=== PATIENT | female | born 1985 | race Caucasian/White ===

== ENCOUNTER 2016-07-26 14:35 | Inpatient (IN) | payer MEDICAID, OTHER ==
[2016-07-26] VITALS (7 sets, daily range): BP systolic 92–140; BP diastolic 48–81; PULSE 71–94; RESP 14–18; TEMP 97.4–97.6; O2SAT 96–100
[~2016-07-26] VITALS: Ht 152.4 cm; Wt 51.9 kg
[~2016-07-26 14:35] MED LIST: CYCL-36 PO; IBUP800T23 PO
[2016-07-26] MEDS ORDERED: SODIUM CHLOR 0.9% 1000 ML INJ 1,000 ML IV ONE (15:06)
--- NOTE | 2016-07-26 15:12 | PD ---
HPI Chief Complaint: OD/ Ingestion Time Seen by Provider: 15:12 Travel History International Travel<30 days: No Contact w/Intl Traveler<30days: No Traveled to known affect area: No History of Present Illness HPI 31-year-old female presents to the emergency Department under Colon act for attempted suicide. Per the Colon act report the patient wrote a suicide letter stating that she "just couldn't do it anymore" and "wanted to be in a better place." The patient states that she took Dilaudid 8 mg IV at about 1:00 PM. She does complain of feeling tired. She denies any other ingestion of substances. Denies taking any pills or drinking any alcohol. Denies any chest pain, shortness of breath, abdominal pain, lightheadedness, dizziness, nausea, vomiting. Denies . She is currently denying any suicidal or homicidal ideations. No other complaints. PFSH Past Medical History Bipolar Disorder: Yes Anxiety: Yes Diminished Hearing: No Psychiatric: Yes (MOOD DISORDER) ?: Not LMP: 02/19/2016 Menopausal: No : 8 Para: 5 Miscarriage: 1 : 2 Ovarian Cysts: Yes (PATIENT ONLY HAS ONE OVARY) Tubal Ligation: Yes Past Surgical History Section: Yes (X2) Gynecologic Surgery: Yes Other Surgery: Yes (THYROID BIOPSY) Social History Alcohol Use: No Tobacco Use: Yes (1 PPD) Substance Use: Yes (DILAUDID) Allergies-Medications (Allergen,Severity, Reaction): Coded Allergies: Trazodone (Verified Allergy, Severe, 07/26/16) Reported Meds & Prescriptions Reported Meds & Active Scripts Active No Active Prescriptions or Reported Medications Review of Systems Except as stated in HPI: all other systems reviewed are Neg Physical Exam Narrative GENERAL: Well-nourished and well-developed female patient in no acute distress. SKIN: Warm and dry. HEAD: Normocephalic and atraumatic. EYES: No injection, drainage, or hyphema noted. PERRLA. EOMI. ENT: No nasal drainage noted. Oropharynx is clear. NECK: Supple and the trachea is midline. CARDIOVASCULAR: Regular rate and rhythm. RESPIRATORY: Breath sounds are equal bilaterally with no accessory muscle use, wheezing, rhonchi, or crackles. GASTROINTESTINAL: Abdomen is soft, non-tender, and nondistended. MUSCULOSKELETAL: No obvious deformities, swelling, cyanosis, or ecchymosis is present throughout the upper and lower extremities. Patient has full range of motion without any signs of neurovascular compromise. Strength 5/5 upper and lower extremities equal bilaterally. NEUROLOGICAL: Drowsy but easily aroused. Oriented x 4. Normal speech and gait. Cranial nerves are grossly intact. Data Data Last Documented VS Vital Signs Date Time Temp Pulse Resp B/P Pulse Ox O2 Delivery O2 Flow Rate FiO2 07/26/16 20:09 97.4 75 18 128/76 96 Room Air 07/26/16 19:11 2 Orders Electrocardiogram (07/26/16 15:06) Alcohol (Ethanol) (07/26/16 15:06) Complete Blood Count With Diff (07/26/16 15:06) Comprehensive Metabolic Panel (07/26/16 15:06) Drug Screen, Random Urine (07/26/16 15:06) Salicylates (Aspirin) (07/26/16 15:06) Tylenol (Acetaminophen) (07/26/16 15:06) Iv Access Insert/Monitor (07/26/16 15:06) Ecg Monitoring (07/26/16 15:06) Oximetry (07/26/16 15:06) Psych Screen (07/26/16 15:06) Sodium Chloride 0.9% Flush (Ns Flush) (07/26/16 15:15) Sodium Chlor 0.9% 1000 Ml Inj (Ns 1000 M (07/26/16 15:06) Ed Urine Pregnancytest Poc (07/26/16 15:06) Arterial Blood Gas (Abg) (07/26/16 ) Oxygen Administration (07/26/16 15:12) Potassium Cl 40 Meq/30 Ml Liq (Kcl 40 Me (07/26/16 17:30) Ondansetron Inj (Zofran Inj) (07/26/16 19:00) Labs Laboratory Tests Test 07/26/16 07/26/16 07/26/16 07/26/16 00:00 15:20 15:28 18:40 White Blood Count 11.7 TH/MM3 Red Blood Count 4.02 MIL/MM3 Hemoglobin 11.9 GM/DL Hematocrit 36.6 % Mean Corpuscular Volume 90.9 FL Mean Corpuscular Hemoglobin 29.6 PG Mean Corpuscular Hemoglobin 32.6 % Concent Red Cell Distribution Width 14.4 % Platelet Count 311 TH/MM3 Mean Platelet Volume 6.9 FL Neutrophils (%) (Auto) 82.0 % Lymphocytes (%) (Auto) 9.0 % Monocytes (%) (Auto) 8.5 % Eosinophils (%) (Auto) 0.3 % Basophils (%) (Auto) 0.2 % Neutrophils # (Auto) 9.6 TH/MM3 Lymphocytes # (Auto) 1.1 TH/MM3 Monocytes # (Auto) 1.0 TH/MM3 Eosinophils # (Auto) 0.0 TH/MM3 Basophils # (Auto) 0.0 TH/MM3 CBC Comment DIFF FINAL Differential Comment Sodium Level 139 MEQ/L Potassium Level 3.1 MEQ/L Chloride Level 105 MEQ/L Carbon Dioxide Level 25.5 MEQ/L Anion Gap 9 MEQ/L Blood Urea Nitrogen 10 MG/DL Creatinine 0.64 MG/DL Estimat Glomerular Filtration 108 ML/MIN Rate Random Glucose 188 MG/DL Calcium Level 8.3 MG/DL Total Bilirubin 0.3 MG/DL Aspartate Amino Transf 13 U/L (AST/SGOT) Alanine Aminotransferase 18 U/L (ALT/SGPT) Alkaline Phosphatase 66 U/L Total Protein 6.8 GM/DL Albumin 3.8 GM/DL Salicylates Level 6.2 MG/DL Acetaminophen Level LESS THAN 2.0 MCG/ML Ethyl Alcohol Level LESS THAN 3 MG/DL Blood Gas Puncture Site LT RADIAL Blood Gas Patient Temperature 98.6 Blood Gas HCO3 24 mmol/L Blood Gas Base Excess -2.4 mmol/L Blood Gas Oxygen Saturation 87 % Arterial Blood pH 7.24 Arterial Blood Partial 59 mmHg Pressure CO2 Arterial Blood Partial 76 mmHG Pressure O2 Arterial Blood Oxygen Content 15.2 Vol % Arterial Blood 5.4 % Carboxyhemoglobin Arterial Blood Methemoglobin 1.8 % Blood Gas Hemoglobin 12.3 G/DL Oxygen Delivery Device ROOM AIR Blood Gas Inspired Oxygen 21 % Urine Opiates Screen POS Urine Barbiturates Screen NEG Urine Amphetamines Screen NEG Urine Benzodiazepines Screen NEG Urine Cocaine Screen NEG Urine Cannabinoids Screen NEG MDM Medical Decision Making Medical Screen Exam Complete: Yes Emergency Medical Condition: Yes Differential Diagnosis Possible overdose versus substance abuse versus suicidal ideations versus depression versus bipolar disorder Narrative Course 31-year-old female presents to the emergency Department under Colon act for suicidal ideations. Patient took 8 mg of IV Dilaudid about 2 hours prior to arrival. She left a suicide note, this was an intentional harm to herself. Patient is afebrile, vital signs are stable. Blood gas on room air does suggest that her CO2 is slightly elevated and her oxygen saturation is a little low. She is placed on oxygen and will be monitored closely. CBC shows slightly elevated white blood cell count of 11.7. CMP shows mild hypokalemia with a potassium of 3.1. This will be repleted orally with 40 mEq by mouth. Tylenol and salicylate level is within normal limits. EtOH is less than 3. Acetaminophen and salicylate levels are unremarkable. Urine tox is positive for opiates. ED urine test is negative. Patient has remained stable while here in the emergency department. She is continued to be drowsy and is sleeping but she has no difficulty breathing and is maintaining her oxygen saturation at 98%. My attending physician Dr. Leon also evaluated the patient and agrees that we will continue to observe her here until she is more awake. The patient has been observed here for 4 hours. She is slightly drowsy but much more awake. Her symptoms are improving. Her lab work is all reassuring. She is medically cleared for psychiatric evaluation and disposition. I discussed the case with my attending physician Dr. Leon who is aware of the patients history, physical examination findings, and treatment plan. Diagnosis Primary Impression: Suicidal ideation Additional Impression: Substance abuse Scripts No Active Prescriptions or Reported Meds Tawana Sanchez Jul 26, 2016 15:12
[2016-07-26] MEDS ORDERED: SODIUM CHLORIDE 0.9% FLUSH 5 ML FLUSH IVF PRN (15:15)
[2016-07-26 15:38] LABS: BLOOD GAS BASE EXCESS -2.4 mmol/L (-2-2); BLOOD GAS CARBOXYHEMOGLOBIN 5.4 % (0-4); BLOOD GAS HCO3 24 mmol/L (22-26); BLOOD GAS METHEMOGLOBIN 1.8 % (0-2); BLOOD GAS O2 HGB SATURATION 87 % (90-100); BLOOD GAS OXYGEN CONTENT 15.2 Vol % (12.0-20.0); BLOOD GAS PCO2 59 mmHg (38-42); BLOOD GAS PO2 76 mmHG (61-120); BLOOD GAS TOTAL HGB 12.3 G/DL (12.0-16.0); CRITICAL VALUE YES; TEMP CORR TO 98.6
[2016-07-26 15:39] LABS: DRAW SITE LT RADIAL; FIO2 21 %; NUMBER OF ARTERIAL PUNCTURES 1; OXYGEN DEVICE ROOM AIR; STAT YES
[2016-07-26 15:51] LABS: AUTOMATED NEUTROPHIL # 9.6 TH/MM3 (1.8-7.7); BASOPHIL % 0.2 % (0.0-2.0); EOSINOPHIL % 0.3 % (0.0-4.0); HEMATOCRIT 36.6 % (35.0-46.0); HEMO FLAGS DIFF FINAL; LYMPHOCYTE # 1.1 TH/MM3 (1.0-4.8); MEAN CELL VOLUME 90.9 FL (80.0-100.0); MEAN CORPUSCULAR HEMOGLOBIN 29.6 PG (27.0-34.0); MEAN CORPUSCULAR HGB CONC 32.6 % (32.0-36.0); MONO % 8.5 % (0.0-8.0); PLATELET COUNT 311 TH/MM3 (150-450); RED BLOOD COUNT 4.02 MIL/MM3 (4.00-5.30); RED CELL DISTRIBUTION WIDTH 14.4 % (11.6-17.2); WHITE BLOOD COUNT 11.7 TH/MM3 (4.0-11.0)
[2016-07-26 17:10] LABS: ALT (GPT) 18 U/L (10-53); ANION GAP 9 MEQ/L (5-15); AST (GOT) 13 U/L (15-37); BICARBONATE 25.5 MEQ/L (21.0-32.0); BLOOD UREA NITROGEN 10 MG/DL (7-18); CHLORIDE 105 MEQ/L (98-107); GLOMERULAR FILTRATION RATE 108 ML/MIN (>89); POTASSIUM 3.1 MEQ/L (3.5-5.1); SODIUM (NA) 139 MEQ/L (136-145)
[2016-07-26 17:12] LABS: ACETAMINOPHEN LESS THAN 2.0 MCG/ML (10.0-30.0); ALKALINE PHOSPHATASE 66 U/L (45-117); TOTAL BILIRUBIN ADULT 0.3 MG/DL (0.2-1.0)
[2016-07-26] MEDS ORDERED: POTASSIUM CL 40 MEQ/30 ML LIQ UDC PO ONE (17:30)
[2016-07-26] MEDS ORDERED: ONDANSETRON HCL 4 MG/2 ML VIAL IV PUSH ONE (19:00)
[2016-07-26 19:11] LABS: AMPHETAMINE, URINE NEG (NEG); BARBITURATES, URINE NEG (NEG); COCAINE, URINE NEG (NEG)
[2016-07-27 02:00] VITALS: BP 114/64; PULSE 75; RESP 18; O2SAT 97
[2016-07-27 06:08] VITALS: BP 141/67; PULSE 82; RESP 18; O2SAT 99
[2016-07-27 11:26] VITALS: BP 128/66; PULSE 79; RESP 16; TEMP 98.7; O2SAT 98
[2016-07-27 11:28] VITALS: BP 164/84; PULSE 70; RESP 18; TEMP 98.4; O2SAT 100
[2016-07-27 12:05] VITALS: BP 116/79; PULSE 84; RESP 18; TEMP 98.7; O2SAT 97
[2016-07-27] MEDS ORDERED: ACETAMINOPHEN 325 MG TAB PO PRN ×2 (12:15→14:15)
[2016-07-27] MEDS ORDERED: ALUMINUM/MAGNESIUM/SIMETH 30 ML CUP PO PRN ×2 (12:15→14:15)
[2016-07-27] MEDS ORDERED: MAGNESIUM HYDROXIDE SUSP 30 ML CUP PO PRN ×2 (12:15→14:15)
[2016-07-27] MEDS ORDERED: LORazepam 2 MG TAB PO PRN (14:15)
[2016-07-27] MEDS ORDERED: FLUMAZENIL 1 MG/10 ML VIAL IV PUSH PRN (14:15)
[2016-07-27] MEDS: NICOTINE 21 MG/24 HR PATCH T-DERMAL SCH (14:15)
[2016-07-27] MEDS ORDERED: LORazepam 2 MG/ML VIAL IV PUSH PRN ×4 (14:15)
[2016-07-27] MEDS ORDERED: diphenhydrAMINE HCL 50 MG CAP PO PRN (14:15)
--- NOTE | 2016-07-27 14:21 | EKG ---
Date Performed: 07/26/2016 Time Performed: 15:37:01 PTAGE: 31 years EKG: Sinus rhythm NORMAL ECG PREVIOUS TRACING : 03/31/2012 15.46 Since previous tracing, no significant change noted DOCTOR: Mirna Rogers Interpretating Date/Time 07/27/2016 14:20:40
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
[2016-07-27 18:47] VITALS: BP 119/71; PULSE 70; RESP 17; TEMP 98; O2SAT 97
[2016-07-28 05:50] VITALS: BP 118/74; PULSE 67; RESP 16; TEMP 97.7
[2016-07-28] MEDS: NICOTINE 21 MG/24 HR PATCH T-DERMAL SCH (09:00)
[2016-07-28] MEDS: REMOVE OLD NICODERM (NICOTINE) PATCH TD SCH (09:00)
[2016-07-28 19:34] VITALS: BP 104/62; PULSE 84; RESP 16; TEMP 98.1; O2SAT 98
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
[2016-07-28] MEDS: LORazepam 1 MG TAB PO PRN (21:45)
[2016-07-29 05:42] VITALS: BP 137/75; PULSE 65; RESP 16; TEMP 97.8
[2016-07-29] MEDS: NICOTINE 21 MG/24 HR PATCH T-DERMAL SCH (08:54)
[2016-07-29] MEDS: REMOVE OLD NICODERM (NICOTINE) PATCH TD SCH (09:00)
--- NOTE | 2016-07-29 17:41 | HHI.PYPN ---
Subjective Remarks Pt seen and discussed with staff. She has been isolative to her room and spent most of day in bed. She remains depressed. Insight is poor. She reports that she is feeling tired and remains hopeless. 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 Inpt. impairment in safety Request HC Surrog/Guard Advoc?: No Sharee Plascencia MD Jul 29, 2016 17:41
[2016-07-29 19:32] VITALS: BP 123/81; PULSE 71; RESP 18; TEMP 98.8; O2SAT 98
[2016-07-29] MEDS: LORazepam 1 MG TAB PO PRN (21:53)
[2016-07-30 05:00] VITALS: BP 108/74; PULSE 74; RESP 16; TEMP 97.7
[2016-07-30] MEDS: REMOVE OLD NICODERM (NICOTINE) PATCH TD SCH (09:00)
[2016-07-30] MEDS: NICOTINE 21 MG/24 HR PATCH T-DERMAL SCH (09:00)
--- NOTE | 2016-07-30 10:51 | HHI.PYPN ---
Subjective Remarks Patient was seen and discussed with the staff development nurse. Patient reported that she has been feeling somewhat disappointed in herself but on the other hand she enjoys feeling good or wanting to get high thus why she did the drugs. She knows that she is working on her program through the drug court and she was there only for one month now she has to go back again and start. She seems to have poor insight. Denied any suicidal ideation intentions or plan. No behavior or management problem reported. She tends to isolate herself and keeps to herself in her room area she was encouraged to participate in all the therapeutic activity on the floor. No side effects were complained. Continue with the same treatment Review of Systems Except as stated in HPI: all other systems reviewed are Neg Psychiatric: COMPLAINS OF: Anxiety, Mood changes, Depression Objective Alert: Yes [place]: Person, Place, Date, Situation Mood: Depressed Affect: Flat Memory Intact: Immediate, Recent, Remote Hallucinations: Other (none) Delusions: No Delusion Type: Other (none) Suicidal: Ideation (denies today) Homicidal: Ideation (denies) Insight/Judgement Fair to limited Remarks Attention and concentration improving. Gait normal. Language normal. 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 Inpt. Risk of decompensation Request HC Surrog/Guard Advoc?: No Ignacio Davila MD Jul 30, 2016 10:50
[2016-07-30 19:31] VITALS: BP 107/69; PULSE 81; RESP 16; TEMP 97.4; O2SAT 97
[2016-07-31 06:49] VITALS: BP 118/72; PULSE 69; RESP 16; TEMP 97.7
[2016-07-31] MEDS: NICOTINE 21 MG/24 HR PATCH T-DERMAL SCH (09:00)
[2016-07-31] MEDS: REMOVE OLD NICODERM (NICOTINE) PATCH TD SCH (09:00)
--- NOTE | 2016-07-31 12:07 | HHI.DS ---
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 Chart reviewed. Pt is a 31 YOWF who was admitted under a BA taken out by [place] [employer] after she was found unresponsive s/p an intentional overdose on dilaudid in suicide attempt.Pt left suicide note which is on chart. Pt states that she was overwhelmed and stressed due to complexities of drug court, finances and attempts to maintain sobriety. Pt has been labile and teaful on unit. She expresses hopelessness and helplessness. No agitation. She has previous hx of psychiatric hospitalization and non- compliance with mental health treatment. She has very poor social support. She endorses SI. No HI. Tobacco Use In Past 30 Days: 5 or More Cigarettes/Day Alcohol Use: Monthly or Less Hospital Course Patient was started on supportive treatment. She remained somewhat isolated did participate in some of the therapeutic activity on the floor. No behavior or management problem reported. Patient was willing to go and follow-up as an outpatient with her drug court and abstain from any substance use and/or abuse. Denied any suicidal ideation intentions or plan. Denied any auditory or visual hallucinations. At that point arrangements were made for her to be discharged and follow-up with drug court and outpatient follow-up Results Blood Pressure 118 / 72 Vital Signs Date Time Temp Pulse Resp B/P Pulse Ox O2 Delivery O2 Flow Rate FiO2 07/31/16 06:49 97.7 69 16 118/72 07/30/16 19:31 97 07/27/16 11:28 Room Air Please see the EMR Summary of Major Lab Results Nothing significant Summary of Procedures None Imaging None Pending results at discharge: No Medications # of Antipsychotic meds at D/C: 1 Appropriate >1 Antipsych meds?: 2 Approp Antipsych med options 1 - Minimum of three failed multiple trials of monotherapy. Discharge Discharge Date: Jul 31, 2016 Discharge Diagnosis: (1) Substance or medication-induced depressive disorder Diagnosis: Principal ICD Code: F19.94 (2) Dilaudid use disorder, mild, abuse Diagnosis: Principal ICD Code: F11.10 Mental Status Exam at Disch Patient was alert oriented 3 cooperative casually dressed. Her speech was clear spontaneous without any evidence of loose associations or flights of ideas or pressure speech her mood was described as feeling hopeful about the future and wanting to face the drug court and follow-up with her outpatient treatment program. Denied any suicidal ideation intentions or plan. Denied any auditory or visual hallucinations. Pt Condition on Discharge: Stable Discharge Disposition: Discharge Home Discharge Instructions Diet Instructions: As Tolerated, No Restrictions Activities you can perform: Regular-No Restrictions Scheduled Appointment: Discharge Time <= 30 minutes Discharge/Advance Care Plan Health Problems: (1) Dilaudid use disorder, mild, abuse (2) Substance or medication-induced depressive disorder Goals to promote your health * To prevent worsening of your condition and complications * To maintain your health at the optimal level Directions to meet your goals Take your medications as prescribed Follow your dietary instruction Follow activity as directed Keep your appointments as scheduled Take your immunizations and boosters as scheduled If your symptoms worsen call your PCP, if no PCP go to Urgent Care Center or Emergency Room For 11/02 questions related to your inpatient stay or results of tests pending at discharge, please contact Dr. Ignacio Davila at Smoking is Dangerous to Your Health. Avoid second hand smoking Ignacio Davila MD Jul 31, 2016 12:07
== END 2016-07-31 13:20 | disposition home or self-care (01) | DRG 897 ==
LOC: NEPC 14:35 → NEDA 07-27 12:33 → H260 07-27 12:37
PROVIDERS: ADMIT Psychiatry & Neurology Psychiatry; ATTEND Psychiatry & Neurology Psychiatry
DX: F11.14 Opioid abuse with opioid-induced mood disorder (principal); E87.6 Hypokalemia; R40.0 Somnolence; T40.2X2A Poisoning by other opioids, intentional self-harm, initial encounter; Z91.14 Patient's other noncompliance with medication regimen; Z91.19 Patient's noncompliance with other medical treatment and regimen; F17.210 Nicotine dependence, cigarettes, uncomplicated
CPT/HCPCS: 36600; 80053; 80307; 80320; 80329; 82805; 84703; 85025; 93005; 96361; 96374; G0480; J2405; J7030; Q0163

== ENCOUNTER 2017-06-02 08:39 | Emergency (ER) | payer OTHER ==
[~2017-06-02] VITALS: Ht 152.4 cm; Wt 45.5 kg
[2017-06-02 08:40] VITALS: BP 131/92; PULSE 132; RESP 20; TEMP 99.8; O2SAT 98
--- NOTE | 2017-06-02 09:22 | PD ---
HPI Chief Complaint: Maturity Checker Problem/Complaint Time Seen by Provider: 09:07 Travel History International Travel<30 days: No Contact w/Intl Traveler<30days: No Traveled to known affect area: No History of Present Illness HPI 32yo F presents to the ED with c/o bad smell in the vaginal region stating she has an infection. States she either had bacterial vaginosis or trichomoniasis. Denies any fever, chest pain, sob, n/v, abdominal pain, vaginal bleeding or discharge. Pt also had right upper tooth pain since yesterday but no drooling, change in voice, tripoding. PFSH Past Medical History Bipolar Disorder: Yes Anxiety: Yes Depression: Yes Cancer: Yes (REPORTS OVARIAN) Diminished Hearing: No Psychiatric: Yes (MOOD DISORDER) Reproductive: Yes (REPORTS HAVING CA IN LEFT OVARY, AND TUBES WERE TIED) ?: Not LMP: CURRENTLY MENSTRATING Menopausal: No : 8 Para: 5 Miscarriage: 1 : 2 Ovarian Cysts: Yes (PATIENT ONLY HAS ONE OVARY) Tubal Ligation: Yes Past Surgical History Section: Yes (X2) Gynecologic Surgery: Yes Other Surgery: Yes (THYROID BIOPSY) Social History Alcohol Use: Yes Tobacco Use: Yes (1 PPD) Substance Use: Yes (DILADUD, METH, COCAINE, THC) Allergies-Medications (Allergen,Severity, Reaction): Coded Allergies: trazodone (Unverified Allergy, Severe, 05/19/17) Reported Meds & Prescriptions Reported Meds & Active Scripts Active Tylenol (Acetaminophen) 325 Mg Tab 650 Mg PO Q6H PRN Bactrim DS (Sulfamethoxazole-Trimethoprim) 800-160 Mg Tab 1 Tab PO BID Review of Systems Except as stated in HPI: all other systems reviewed are Neg Physical Exam Narrative GENERAL: 32yo F not in distress. SKIN: Focused skin assessment warm/dry. HEAD: Atraumatic. Normocephalic. EYES: Pupils equal and round. No scleral icterus. No injection or drainage. ENT: Uvula midline. Patent airway. No tongue elevation. MOUTH: +Cracked tooth #1 with ttp. No periapical fluctuance. NECK: Trachea midline. No JVD. CARDIOVASCULAR: Regular rate and rhythm. No murmur appreciated. RESPIRATORY: No accessory muscle use. Clear to auscultation. Breath sounds equal bilaterally. GASTROINTESTINAL: Abdomen soft, non-tender, nondistended. PELVIC: Very small amount of white vaginal discharge, likely physiologic. No blood. No CMT or adnexal tenderness bilaterally. MUSCULOSKELETAL: No obvious deformities. No clubbing. No cyanosis. No edema. NEUROLOGICAL: Awake and alert. No obvious cranial nerve deficits. Motor grossly within normal limits. Normal speech. PSYCHIATRIC: Appropriate mood and affect; insight and judgment normal. Data Data Last Documented VS Vital Signs Date Time Temp Pulse Resp B/P (MAP) Pulse Ox O2 Delivery O2 Flow Rate FiO2 06/02/17 09:33 92 18 97 Room Air 06/02/17 08:40 99.8 Orders Orders Gc And Chlamydia Pcr (06/02/17 09:22) Wet Prep Profile (06/02/17 09:22) Ed Urine Pregnancytest Poc (06/02/17 09:22) Urinalysis - C+S If Indicated (06/02/17 09:52) Urine Culture (06/02/17 10:01) Sulfamet-Trimeth Ds 800-160 Mg (Bactrim (06/02/17 11:30) Acetaminophen (Tylenol) (06/02/17 11:30) Ed Discharge Order (06/02/17 11:22) Labs Laboratory Tests Test 06/02/17 09:48 06/02/17 10:01 Clue Cells (Wet Prep) NONE SEEN Vaginal Trichomonas (Wet Prep) NONE SEEN Vaginal Yeast (Wet Prep) NONE SEEN Urine Color YELLOW Urine Turbidity HAZY Urine pH 6.0 Urine Specific [place] 1.029 Urine Protein 30 mg/dL Urine Glucose (UA) NEG mg/dL Urine Ketones NEG mg/dL Urine Occult Blood SMALL Urine Nitrite POS Urine Bilirubin NEG Urine Urobilinogen LESS THAN 2.0 MG/DL Urine Leukocyte Esterase LARGE Urine RBC 23 /hpf Urine WBC 131 /hpf Urine Squamous Epithelial Cells <1 /hpf Urine Bacteria FEW /hpf Urine Hyaline Casts 1 /lpf Urine Mucus MANY /lpf Microscopic Urinalysis Comment CULTURE INDICATED MDM Medical Decision Making Medical Screen Exam Complete: Yes Emergency Medical Condition: Yes Differential Diagnosis Bacterial vaginosis vs. vaginal candidiasis vs. UTI Narrative Course 32yo F with c/o foul smell in vaginal region. UA showed positive nitrite. Large leukocyte. Wet prep negative. Pt's HR was 132 at triage but she said she just finished biking here. Her repeat HR in the medical exam room was 92. Pt is nontoxic appearing. Will treat UTI. Pt given first dose of bactrim and acetaminophen here. Return precautions given. Diagnosis Primary Impression: UTI (urinary tract infection) Qualified Codes: N39.0 - Urinary tract infection, site not specified; R31.9 - Hematuria, unspecified Patient Instructions: General Instructions Departure Forms: Tests/Procedures Additional Instructions: Please follow up with your primary care physician in 3-7 days. Return to the ED if symptoms worsen. Med/Other Pt SpecificInfo: Prescription(s) given Scripts Acetaminophen (Tylenol) 325 Mg Tab 650 MG PO Q6H Y for PAIN SCALE 1 TO 4, #20 TAB 0 Refills Prov: Bess Hensley DO 06/02/17 Sulfamethoxazole-Trimethoprim (Bactrim DS) 800-160 Mg Tab 1 TAB PO BID for Infection, #14 TAB 0 Refills Prov: Bess Hensley DO 06/02/17 Disposition: 01 DISCHARGE HOME Condition: Stable Bess Hensley DO Jun 02, 2017 09:22
[2017-06-02 09:33] VITALS: PULSE 92; RESP 18; O2SAT 97
[2017-06-02 10:36] LABS: BACTERIA, URINE FEW /hpf; BLOOD, URINE SMALL (NEG); COMMENT (UR) CULTURE INDICATED; CULTURE IF INDICATED CULTURE INDICATED; GLUCOSE,URINE NEG (NEG); HYALINE CAST, URINE 1 /lpf (RARE); KETONE, URINE NEG (NEG); MUCUS URINE MANY /lpf (OCC); NITRITE,URINE POS (NEG); SQUAMOUS EPITHELIAL CELL URINE <1 /hpf (0-5); URINE COLOR YELLOW (YELLW/STRAW)
[2017-06-02] MEDS ORDERED: BACT800T5 PO (11:22)
[2017-06-02] MEDS ORDERED: TYLE325T PO (11:22)
[2017-06-02] MEDS ORDERED: SULFAMETHOXAZOLE-TRIMETHOPRIM DS 800-160 MG TAB PO ONE (11:30)
[2017-06-02] MEDS ORDERED: ACETAMINOPHEN 325 MG TAB PO ONE (11:30)
[2017-06-02 12:37] LABS: CHLAMYDIA PCR NOT DETECTED (NOT DETECT); NEISSERIA PCR DETECTED (NOT DETECT)
== END 2017-06-02 16:01 | disposition home or self-care (01) ==
LOC: NEPD 08:39
DX: N39.0 Urinary tract infection, site not specified (principal); B96.20 Unspecified Escherichia coli [E. coli] as the cause of diseases classified elsewhere; R31.9 Hematuria, unspecified
CPT/HCPCS: 81001; 84703; 87077; 87086; 87186; 87210; 87491; 87591; 99284

== ENCOUNTER 2017-08-14 14:28 | Emergency (ER) | payer OTHER ==
[~2017-08-14] VITALS: Ht 152.4 cm; Wt 53.5 kg
[~2017-08-14 14:28] MED LIST changes: +BACT800T5 PO; -CYCL-36 PO; -IBUP800T23 PO; +TYLE325T PO
[2017-08-14 14:30] VITALS: BP 138/102; PULSE 129; RESP 20; TEMP 98.8; O2SAT 99
[2017-08-14] MEDS ORDERED: SODIUM CHLORIDE 0.9% FLUSH 10 ML FLUSH IVF PRN (14:45)
--- NOTE | 2017-08-14 14:48 | PD ---
HPI Chief Complaint: GI Complaint Time Seen by Provider: 14:41 Travel History International Travel<30 days: No Contact w/Intl Traveler<30days: No Traveled to known affect area: No History of Present Illness HPI Patient comes emergency Department complaining of one episode of bright red blood per rectum occurred shortly prior to arrival. Patient reports history of external hemorrhoid and occasionally has blood but this was more than normal. Patient reports the past 2 days she's been taking Excedrin for generalized body aches. Reports taking 6 a day. Patient denies any pain with this or radiation of pain. Patient denies chest pain, shortness of breath, nausea, vomiting, loss change in bladder, melena, loss of bowel, , or fevers. Patient denies doing anything for this prior to coming to the emergency department. Denies anything making symptoms better or worse. Denies being on her menstrual cycle currently. Denies any rectal trauma. PFSH Past Medical History Bipolar Disorder: Yes Anxiety: Yes Depression: Yes Cancer: Yes (REPORTS OVARIAN) Diminished Hearing: No Psychiatric: Yes (MOOD DISORDER PTSD PANIC DISORDER) Reproductive: Yes (REPORTS HAVING CA IN LEFT OVARY, AND TUBES WERE TIED) ?: Not Menopausal: No : 8 Para: 5 Miscarriage: 1 : 2 Ovarian Cysts: Yes (PATIENT ONLY HAS ONE OVARY) Tubal Ligation: Yes Past Surgical History Section: Yes (X2) Gynecologic Surgery: Yes Other Surgery: Yes (THYROID BIOPSY) Social History Alcohol Use: No Tobacco Use: Yes (1 PPD) Substance Use: Yes (DILADUD, METH, COCAINE, THC LAST USE 04/07) Allergies-Medications (Allergen,Severity, Reaction): Coded Allergies: trazodone (Unverified Allergy, Severe, 05/19/17) Reported Meds & Prescriptions Reported Meds & Active Scripts Active No Active Prescriptions or Reported Medications Review of Systems Except as stated in HPI: all other systems reviewed are Neg Physical Exam Narrative GENERAL: Well-developed, well nourished, in no acute distress, and non-ill appearing. SKIN: Focused skin assessment warm and dry. HEAD: Atraumatic. Normocephalic. EYES: Pupils equal and round. EOMI. No scleral icterus. No injection or drainage. ENT: No nasal bleeding or discharge. Mucous membranes pink and moist. NECK: Trachea midline. Supple. No nuclear rigidity. CARDIOVASCULAR: Regular rate and rhythm. No murmur appreciated. RESPIRATORY: No accessory muscle use. No respiratory distress. Clear to auscultation. Breath sounds equal bilaterally. GASTROINTESTINAL: Abdomen soft, non-tender, nondistended, and no guarding. Hepatic and splenic margins not palpable. Normal bowel sounds 4. No pulsatile mass. RECTAL: No external hemorrhoid noted. No fissures or fistulas. Digital rectal exam showed occult bright red blood with positive Hemoccult. Exam was performed in presence of staff electronic warfare officer Karine at all times. MUSCULOSKELETAL: No obvious deformities. No clubbing. No cyanosis. No edema. Full range of motion. NEUROLOGICAL: Awake and alert. No obvious cranial nerve deficits. Motor grossly within normal limits. Normal speech. PSYCHIATRIC: Appropriate mood and affect; insight and judgment normal. Data Data Last Documented VS Vital Signs Date Time Temp Pulse Resp B/P (MAP) Pulse Ox O2 Delivery O2 Flow Rate FiO2 08/14/17 16:33 84 16 123/64 (83) 100 08/14/17 14:58 Room Air 08/14/17 14:30 98.8 Orders Orders Complete Blood Count With Diff (08/14/17 14:41) Comprehensive Metabolic Panel (08/14/17 14:41) Lipase (08/14/17 14:41) Prothrombin Time / Inr (Pt) (08/14/17 14:41) Act Partial Throm Time (Ptt) (08/14/17 14:41) Urinalysis - C+S If Indicated (08/14/17 14:41) Type And Screen (08/14/17 14:41) Ecg Monitoring (08/14/17 14:41) Iv Access Insert/Monitor (08/14/17 14:41) Oximetry (08/14/17 14:41) Sodium Chloride 0.9% Flush (Ns Flush) (08/14/17 14:45) Ed Urine Pregnancytest Poc (08/14/17 14:41) Famotidine Inj (Pepcid Inj) (08/14/17 14:45) Sodium Chlor 0.9% 1000 Ml Inj (Ns 1000 M (08/14/17 14:45) Ed Discharge Order (08/14/17 16:18) Labs Laboratory Tests Test 08/14/17 14:55 08/14/17 15:00 Urine Color YELLOW Urine Turbidity HAZY Urine pH 6.5 Urine Specific [place] 1.029 Urine Protein TRACE mg/dL Urine Glucose (UA) NEG mg/dL Urine Ketones NEG mg/dL Urine Occult Blood NEG Urine Nitrite NEG Urine Bilirubin NEG Urine Urobilinogen 2.0 MG/DL Urine Leukocyte Esterase SMALL Urine RBC 3 /hpf Urine WBC 4 /hpf Urine Squamous Epithelial Cells 7 /hpf Urine Amorphous Sediment RARE Urine Bacteria RARE /hpf Urine Mucus MOD /lpf Microscopic Urinalysis Comment CULT NOT INDICATED White Blood Count 6.9 TH/MM3 Red Blood Count 4.44 MIL/MM3 Hemoglobin 13.3 GM/DL Hematocrit 39.2 % Mean Corpuscular Volume 88.1 FL Mean Corpuscular Hemoglobin 29.8 PG Mean Corpuscular Hemoglobin Concent 33.9 % Red Cell Distribution Width 16.6 % Platelet Count 330 TH/MM3 Mean Platelet Volume 6.8 FL Neutrophils (%) (Auto) 57.5 % Lymphocytes (%) (Auto) 25.8 % Monocytes (%) (Auto) 13.3 % Eosinophils (%) (Auto) 3.0 % Basophils (%) (Auto) 0.4 % Neutrophils # (Auto) 4.0 TH/MM3 Lymphocytes # (Auto) 1.8 TH/MM3 Monocytes # (Auto) 0.9 TH/MM3 Eosinophils # (Auto) 0.2 TH/MM3 Basophils # (Auto) 0.0 TH/MM3 CBC Comment DIFF FINAL Differential Comment Prothrombin Time 10.0 SEC Prothromb Time International Ratio 1.0 RATIO Activated Partial Thromboplast Time 25.7 SEC Blood Urea Nitrogen 20 MG/DL Creatinine 0.69 MG/DL Random Glucose 87 MG/DL Total Protein 7.4 GM/DL Albumin 3.6 GM/DL Calcium Level 8.8 MG/DL Alkaline Phosphatase 126 U/L Aspartate Amino Transf (AST/SGOT) 39 U/L Alanine Aminotransferase (ALT/SGPT) 53 U/L Total Bilirubin 0.3 MG/DL Sodium Level 145 MEQ/L Potassium Level 3.7 MEQ/L Chloride Level 114 MEQ/L Carbon Dioxide Level 25.2 MEQ/L Anion Gap 6 MEQ/L Estimat Glomerular Filtration Rate 99 ML/MIN Lipase 145 U/L [facility] Medical Decision Making Medical Screen Exam Complete: Yes Emergency Medical Condition: Yes Differential Diagnosis Upper GI bleed, lower GI bleed, anemia, metabolic disturbance, diverticulitis, diverticulosis, hemorrhoids Narrative Course The bleeding appears to be due to hemorrhoids. The patient is stable and in no distress. There is no evidence of significant blood loss clinically. The patient was instructed to follow up with GI. The diagnosis, management and plan of care was discussed with the patient who agrees with plan. Patient in no obvious distress upon re-evaluation. Patient is lying comfortably texting on her phone. Pulses noted be 83 on the heart monitor. All pertinent laboratory result(s) discussed with patient. Discussed patient with Dr. Estrada prior to discharge, who is in agreement with plan of care and disposition. Any questions/concerns in reference to patient diagnosis/ condition discussed and clarified prior to patient's discharge. Reinforced sheer importance of close follow up with patient's primary physician or primary care clinic. Instructed patient to return to ED immediately, if symptoms return/ worsen. Patient showed understanding of above instructions. Further instructions and recommendations were detailed in discharge paperwork. Patient ambulated without difficulty out of ED at discharge. Procedures Procedure Narrative Verbal consent was obtained. Digital rectal exam was performed. Stool specimen applied and test interpreted between 1 and 3 minutes of application and the result was positive. Internal Controls: Both positive and negative controls were validated. distribution operation supervisor was present during this exam. [employer] Point of Care Internal Pos. & Neg. Controls: Passed Fecal Specimen Occult Blood: Positive Diagnosis Primary Impression: Bright red blood per rectum Referrals: Emerita Singh MD [facility] Patient Instructions: General Instructions, Hemorrhoids (ED) Additional Instructions: Follow-up with your primary care physician and/or GI doctor in 3-5 days for reevaluation. Use [id number]-nplyart stool softener and avoid straining with bowel movements. Use [id number] Preparation H as needed for hemorrhoids. Follow instructions on the packaging. Return to the emergency department if symptoms get worse. Scripts No Active Prescriptions or Reported Meds Disposition: 01 DISCHARGE HOME Condition: Stable Keyon Menezes Aug 14, 2017 14:47
[2017-08-14] MEDS: FAMOTIDINE 20 MG/2 ML VIAL IV PUSH ONE (15:14)
[2017-08-14] MEDS: SODIUM CHLOR 0.9% 1000 ML INJ 1,000 ML IV ONE (15:14)
[2017-08-14 15:18] LABS: BASOPHIL % 0.4 % (0.0-2.0); EOSINOPHIL # 0.2 TH/MM3 (0-0.4); HEMATOCRIT 39.2 % (35.0-46.0); HEMOGLOBIN 13.3 GM/DL (11.6-15.3); LYMPH % 25.8 % (9.0-44.0); LYMPHOCYTE # 1.8 TH/MM3 (1.0-4.8); MEAN CELL VOLUME 88.1 FL (80.0-100.0); MEAN CORPUSCULAR HEMOGLOBIN 29.8 PG (27.0-34.0); MEAN CORPUSCULAR HGB CONC 33.9 % (32.0-36.0); MEAN PLATELET VOLUME 6.8 FL (7.0-11.0); MONO % 13.3 % (0.0-8.0); MONOCYTE # 0.9 TH/MM3 (0-0.9); NEUT % 57.5 % (16.0-70.0); PLATELET COUNT 330 TH/MM3 (150-450); RED BLOOD COUNT 4.44 MIL/MM3 (4.00-5.30); RED CELL DISTRIBUTION WIDTH 16.6 % (11.6-17.2); WHITE BLOOD COUNT 6.9 TH/MM3 (4.0-11.0)
[2017-08-14 15:31] LABS: AMORPHOUS SEDIMENT, URINE RARE; BACTERIA, URINE RARE /hpf; BILIRUBIN, URINE NEG (NEG); BLOOD, URINE NEG (NEG); GLUCOSE,URINE NEG (NEG); KETONE, URINE NEG (NEG); MUCUS URINE MOD /lpf (OCC); NITRITE,URINE NEG (NEG); PH, URINE 6.5 (5.0-8.5); SQUAMOUS EPITHELIAL CELL URINE 7 /hpf (0-5); URINE COLOR YELLOW (YELLW/STRAW); URINE LEUKOCYTE ESTERASE SMALL (NEG)
[2017-08-14 15:59] LABS: ALBUMIN 3.6 GM/DL (3.4-5.0); ALT (GPT) 53 U/L (10-53); AST (GOT) 39 U/L (15-37); BICARBONATE 25.2 MEQ/L (21.0-32.0); BLOOD UREA NITROGEN 20 MG/DL (7-18); CALCIUM 8.8 MG/DL (8.5-10.1); CHLORIDE 114 MEQ/L (98-107); CREATININE 0.69 MG/DL (0.50-1.00); GLOMERULAR FILTRATION RATE 99 ML/MIN (>89); GLUCOSE,RANDOM 87 MG/DL (74-106); LIPASE 145 U/L (73-393); SODIUM (NA) 145 MEQ/L (136-145)
[2017-08-14 16:01] LABS: ALKALINE PHOSPHATASE 126 U/L (45-117); TOTAL BILIRUBIN ADULT 0.3 MG/DL (0.2-1.0); TOTAL PROTEIN 7.4 GM/DL (6.4-8.2)
[2017-08-14 16:12] VITALS: PULSE 83
[2017-08-14 16:33] VITALS: BP 123/64; PULSE 84; RESP 16; O2SAT 100
== END 2017-08-14 17:30 | disposition home or self-care (01) ==
LOC: NEPC 14:28
DX: K62.5 Hemorrhage of anus and rectum (principal); F31.9 Bipolar disorder, unspecified; F43.10 Post-traumatic stress disorder, unspecified; N83.209 Unspecified ovarian cyst, unspecified side; F17.200 Nicotine dependence, unspecified, uncomplicated; F14.90 Cocaine use, unspecified, uncomplicated; Z85.43 Personal history of malignant neoplasm of ovary; Z88.8 Allergy status to other drugs, medicaments and biological substances
CPT/HCPCS: 80053; 81001; 83690; 84703; 85025; 85610; 85730; 86850; 86900; 86901; 96374; J7030

== ENCOUNTER 2017-09-26 19:01 | Emergency (ER) | payer OTHER ==
[2017-09-26 19:35] VITALS: BP 121/77; PULSE 90; RESP 16; TEMP 98.3; O2SAT 99
--- NOTE | 2017-09-26 20:44 | PD ---
HPI Chief Complaint: ENT Complaint Time Seen by Provider: 20:13 Travel History International Travel<30 days: No Contact w/Intl Traveler<30days: No Traveled to known affect area: No History of Present Illness HPI Patient comes emergency department complaining of possible strep throat. Patient reports started having throat pain that began 3 days ago. Pain is worse with swallowing. Denies any radiation of pain. Denies anything making symptoms better. Denies taking anything for this. Denies , cough, chest pain, shortness of breath, headache, neck pain, or known fevers. Patient reports similar symptoms happened to her in July of this year she tested positive for strep and this feels "exactly the same". PFSH Past Medical History Bipolar Disorder: Yes Anxiety: Yes Depression: Yes Cancer: Yes (REPORTS OVARIAN) Diminished Hearing: No Psychiatric: Yes (MOOD DISORDER PTSD PANIC DISORDER) Reproductive: Yes ?: Not LMP: 05/2017, PT STATES SHE IS IRREG. Menopausal: No : 8 Para: 5 Miscarriage: 1 : 2 Ovarian Cysts: Yes (PATIENT ONLY HAS ONE OVARY) Tubal Ligation: Yes Past Surgical History Section: Yes (X2) Gynecologic Surgery: Yes Other Surgery: Yes (THYROID BIOPSY) Social History Alcohol Use: No Tobacco Use: Yes (1 PPD) Substance Use: Yes (04/07) Allergies-Medications (Allergen,Severity, Reaction): Coded Allergies: trazodone (Unverified Allergy, Severe, 05/19/17) Reported Meds & Prescriptions Reported Meds & Active Scripts Active Amoxicillin 875 Mg Tab 875 Mg PO BID 10 Days Review of Systems Except as stated in HPI: all other systems reviewed are Neg Physical Exam Narrative GENERAL: Well-developed, well nourished, in no acute distress, and non-ill appearing. SKIN: Focused skin assessment warm and dry. HEAD: Atraumatic. Normocephalic. EYES: Pupils equal and round. EOMI. No scleral icterus. No injection or drainage. ENT: No nasal bleeding or discharge. Mucous membranes pink and moist. Tympanic membranes pearly adan bilaterally. Posterior pharynx erythematous with exudate. Uvula is midline. No tenderness to facial sinuses to palpation. Patient swallowing on saliva and speaking in full sentences without difficulty. NECK: Trachea midline. No cervical lymphadenopathy. Supple. No nuclear rigidity. CARDIOVASCULAR: Regular rate and rhythm. No murmur appreciated. RESPIRATORY: No accessory muscle use. No respiratory distress. Clear to auscultation. Breath sounds equal bilaterally. MUSCULOSKELETAL: No obvious deformities. No clubbing. No cyanosis. No edema. Full range of motion. NEUROLOGICAL: Awake and alert. No obvious cranial nerve deficits. Motor grossly within normal limits. Normal speech. PSYCHIATRIC: Appropriate mood and affect; insight and judgment normal. Data Data Last Documented VS Vital Signs Date Time Temp Pulse Resp B/P (MAP) Pulse Ox O2 Delivery O2 Flow Rate FiO2 09/26/17 19:35 98.3 90 16 121/77 (92) 99 Orders Orders Ed Discharge Order (09/26/17 20:46) [facility] Medical Decision Making Medical Screen Exam Complete: Yes Emergency Medical Condition: Yes Differential Diagnosis Strep pharyngitis, viral pharyngitis, URI, viral syndrome Narrative Course Patient looks great, non-ill appearing. The patient is tolerating fluids and is well hydrated. Appears pharyngitis possibly Strep. No clinical evidence by history or evaluation to suspect meningitis and/or sepsis. There was no evidence to suggest peritonsillar abscess or retropharyngeal abscess. I discussed with the patient, diagnosis, plan of care and to follow up with the patients primary physician. The patient was given antibiotics. The patient was instructed to return if the worsens in anyway, especially if not tolerating fluids, increased pain or swelling, difficulty swallowing or breathing, or as needed. The patient agreed with plan. Patient in no obvious distress upon re-evaluation. Patient was asked if they wanted to speak to my attending, which the patient did not wish to do at this time. Any questions/concerns in reference to patient diagnosis/condition discussed and clarified prior to patient's discharge. Reinforced sheer importance of close follow up with patient's primary physician or primary care clinic. Instructed patient to return to ED immediately, if symptoms return/ worsen. Patient showed understanding of above instructions. Further instructions and recommendations were detailed in discharge paperwork. Patient ambulated without difficulty out of ED at discharge. Diagnosis Primary Impression: Pharyngitis Qualified Codes: J02.9 - Acute pharyngitis, unspecified Referrals: [facility] Patient Instructions: General Instructions, Pharyngitis (ED) Additional Instructions: Follow-up with your primary care physician in 3-5 days for reevaluation. Take all medication as prescribed. Use [id number] Tylenol and ibuprofen as needed for pain and/or fever control. Follow instructions on the packaging. Gargle with warm salt water gargles for symptomatic relief. Do not swallow salt water. Drink plenty of non-caffeinated and nonalcoholic fluids. Return to the emergency department if symptoms get worse. Med/Other Pt SpecificInfo: Prescription(s) given Scripts Amoxicillin (Amoxicillin) 875 Mg Tab 875 MG PO BID for Infection for 10 Days, #20 TAB 0 Refills Prov: Triny Dangelo MD 09/26/17 Disposition: 01 DISCHARGE HOME Condition: Stable Keyon Menezes Sep 26, 2017 20:44
[2017-09-26] MEDS ORDERED: AMOX875T PO (20:45)
== END 2017-09-26 21:02 | disposition home or self-care (01) ==
LOC: NEPK 19:01
DX: J02.9 Acute pharyngitis, unspecified (principal); F31.9 Bipolar disorder, unspecified; F41.9 Anxiety disorder, unspecified; F43.10 Post-traumatic stress disorder, unspecified; F17.200 Nicotine dependence, unspecified, uncomplicated; Z85.43 Personal history of malignant neoplasm of ovary
CPT/HCPCS: 99283

== ENCOUNTER 2017-10-03 14:54 | Emergency (ER) | payer OTHER ==
[~2017-10-03] VITALS: Ht 152.4 cm; Wt 50.0 kg
[~2017-10-03 14:54] MED LIST changes: +AMOX875T PO; -BACT800T5 PO; -TYLE325T PO
[2017-10-03 15:04] VITALS: BP 114/67; PULSE 92; RESP 16; TEMP 99.1; O2SAT 99
--- NOTE | 2017-10-03 15:41 | PD ---
HPI Chief Complaint: Medical Clearance Time Seen by Provider: 15:27 Travel History International Travel<30 days: No Contact w/Intl Traveler<30days: No Traveled to known affect area: No History of Present Illness HPI Patient comes emergency department requesting medical clearance to go back to work. Patient states she was seen here approximately a week ago for sore throat which has since resolved. Patient states that her employer would allow her to come back without a doctor's note saying she is okay to go back to work. Patient denies any fevers, chest pain, shortness breath, sore throat, back pain, neck pain, loss change in bowel or bladder, nausea, vomiting, or other complaints. Denies any pain or radiation of pain. Severity none. Denies anything making symptoms better or worse. PFSH Past Medical History Bipolar Disorder: Yes Anxiety: Yes Depression: Yes Cancer: Yes (REPORTS OVARIAN) Diminished Hearing: No Psychiatric: Yes (MOOD DISORDER PTSD PANIC DISORDER) Reproductive: Yes ?: Not LMP: states irregular, last one about a year ago Menopausal: No : 8 Para: 5 Miscarriage: 1 : 2 Ovarian Cysts: Yes (PATIENT ONLY HAS ONE OVARY) Tubal Ligation: Yes Past Surgical History Section: Yes (X2) Gynecologic Surgery: Yes Other Surgery: Yes (THYROID BIOPSY) Social History Alcohol Use: No Tobacco Use: Yes (1 PPD) Substance Use: No ( ) Allergies-Medications (Allergen,Severity, Reaction): Coded Allergies: trazodone (Unverified Allergy, Severe, 10/03/17) Reported Meds & Prescriptions Reported Meds & Active Scripts Active No Active Prescriptions or Reported Medications Review of Systems Except as stated in HPI: all other systems reviewed are Neg Physical Exam Narrative GENERAL: Well-developed, well nourished, in no acute distress, and non-ill appearing. SKIN: Focused skin assessment warm and dry. HEAD: Atraumatic. Normocephalic. EYES: Pupils equal and round. EOMI. No scleral icterus. No injection or drainage. ENT: No nasal bleeding or discharge. Mucous membranes pink and moist. Posterior pharynx nonerythematous without exudate. Uvula is midline. Patient able swallow on saliva and speaking full sentences without difficulty. NECK: Trachea midline. No cervical lymphadenopathy. Supple. No nuclear rigidity. RESPIRATORY: No accessory muscle use. No respiratory distress. MUSCULOSKELETAL: No obvious deformities. No clubbing. No cyanosis. No edema. Full range of motion. NEUROLOGICAL: Awake and alert. No obvious cranial nerve deficits. Motor grossly within normal limits. Normal speech. PSYCHIATRIC: Appropriate mood and affect; insight and judgment normal. Data Data Last Documented VS Vital Signs Date Time Temp Pulse Resp B/P (MAP) Pulse Ox O2 Delivery O2 Flow Rate FiO2 10/03/17 15:04 99.1 92 16 114/67 (83) 99 Orders Orders Ed Discharge Order (10/03/17 15:41) MDM Medical Decision Making Medical Screen Exam Complete: Yes Emergency Medical Condition: No Medical Record Reviewed: Yes Differential Diagnosis Pharyngitis recheck, will check, physical Narrative Course Patient in no obvious distress upon re-evaluation. Any questions/concerns in reference to patient diagnosis/condition discussed and clarified prior to patient's discharge. Reinforced sheer importance of close follow up with patient 's primary physician or primary care clinic for future well checks. Instructed patient to return to ED immediately, if symptoms return/worsen. Patient showed understanding of above instructions. Further instructions and recommendations were detailed in discharge paperwork. Patient ambulated without difficulty out of ED at discharge. Diagnosis Primary Impression: Well adult health check Referrals: [facility] Patient Instructions: General Instructions Departure Forms: Work Release Enter return to work date: Oct 03, 2017 Additional Instructions: Follow-up with your primary care physician for future well checks. Return to the emergency department for any emergent concerns. Scripts No Active Prescriptions or Reported Meds Disposition: 01 DISCHARGE HOME Condition: Stable Keyon Menezes Oct 03, 2017 15:41
== END 2017-10-03 15:58 | disposition home or self-care (01) ==
LOC: NEPK 14:54
DX: Z02.79 Encounter for issue of other medical certificate (principal)
CPT/HCPCS: 99281

== ENCOUNTER 2018-01-01 07:36 | Emergency (ER) | payer OTHER ==
[2018-01-01 07:40] VITALS: BP 110/65; PULSE 89; RESP 16; TEMP 98.3; O2SAT 99
--- NOTE | 2018-01-01 07:55 | PD ---
HPI Chief Complaint: Injury Time Seen by Provider: 07:49 Travel History International Travel<30 days: No Contact w/Intl Traveler<30days: No Traveled to known affect area: No History of Present Illness HPI Patient is a 32-year-old female presenting to emerge department for evaluation of right foot pain. Patient states it started last week, she denies any known injury or trauma. She states is painful to walk. Her pain at its worst is a 10 out of 10, she states is aching and throbbing. Patient states she walks a lot for work and could have hurt it at any time. Symptoms are constant, onset of symptoms are sudden. There are no alleviating factors. Patient denies any numbness or weakness in her extremities. She denies any ankle pain. PFSH Past Medical History Bipolar Disorder: Yes Anxiety: Yes Depression: Yes Cancer: Yes (REPORTS OVARIAN) Psychiatric: Yes (MOOD DISORDER PTSD PANIC DISORDER) Reproductive: Yes Tetanus Vaccination: > 5 Years ?: Not Menopausal: No : 8 Para: 5 Miscarriage: 1 : 2 Ovarian Cysts: Yes (PATIENT ONLY HAS ONE OVARY) Tubal Ligation: Yes Past Surgical History Section: Yes (X2) Gynecologic Surgery: Yes Other Surgery: Yes (THYROID BIOPSY) Social History Alcohol Use: No Tobacco Use: Yes (1 PPD) Substance Use: No ( ) Allergies-Medications (Allergen,Severity, Reaction): Coded Allergies: trazodone (Unverified Allergy, Severe, 01/01/18) Reported Meds & Prescriptions Reported Meds & Active Scripts Active No Active Prescriptions or Reported Medications Review of Systems Except as stated in HPI: all other systems reviewed are Neg Musculoskeletal: Positive: Myalgias, Arthralgias Physical Exam Narrative GENERAL: Well-developed, well-nourished, alert female. Presenting in no acute distress. SKIN: Warm and dry. HEAD: Normocephalic. EYES: No scleral icterus. No injection or drainage. NECK: Supple, trachea midline. No JVD or lymphadenopathy. CARDIOVASCULAR: Regular rate and rhythm without murmurs, gallops, or rubs. RESPIRATORY: Breath sounds equal bilaterally. No accessory muscle use. GASTROINTESTINAL: Abdomen soft, non-tender, nondistended. MUSCULOSKELETAL: No cyanosis, or edema. Tenderness to palpation to the lateral aspect of the right foot dorsally. 2+ dorsalis pedal pulse, brisk less than 3 second capillary refill. No obvious deformities noted. BACK: Nontender without obvious deformity. No CVA tenderness. Data Data Last Documented VS Vital Signs Date Time Temp Pulse Resp B/P (MAP) Pulse Ox O2 Delivery O2 Flow Rate FiO2 01/01/18 07:40 98.3 89 16 110/65 (80) 99 Orders Orders Foot, Limited (2vws) (01/01/18 ) MDM Medical Decision Making Medical Screen Exam Complete: Yes Emergency Medical Condition: Yes Interpretation(s) Vital Signs Date Time Temp Pulse Resp B/P (MAP) Pulse Ox O2 Delivery O2 Flow Rate FiO2 01/01/18 07:40 98.3 89 16 110/65 (80) 99 Differential Diagnosis Fracture versus sprain versus strain versus other Narrative Course Patient is a well-appearing 32-year-old female presenting for evaluation of right foot pain. No obvious deformities, patient is neurovascularly intact. Exam is consistent with the foot strain however patient is insistent on an x- ray. X-rays ordered and pending. X-ray of the right foot is negative for acute abnormality, this was read by me. Patient was encouraged to rest, elevate , ice extremity. She can take ibuprofen as needed as directed for pain. She can follow-up with her primary doctor at the [facility]. Patient verbalized understanding of instructions. Patient stable for discharge. Diagnosis Primary Impression: Right foot strain Qualified Codes: S96.911A - Strain of unspecified muscle and tendon at ankle and foot level, right foot, initial encounter Referrals: [facility] Patient Instructions: Foot Sprain (ED), General Instructions Additional Instructions: Follow-up with your primary doctor at the [facility] Rest, ice, elevate extremity Take ibuprofen as needed and as directed for pain Return to emergency department for any new or worsening symptoms Med/Other Pt SpecificInfo: Prescription(s) given Scripts Ibuprofen (Ibuprofen) 800 Mg Tab 800 MG PO Q6HR Y for PAIN, #40 TAB 0 Refills Prov: Deepti Taylor 01/01/18 Disposition: 01 DISCHARGE HOME Condition: Stable Deepti Taylor Jan 01, 2018 07:55
[2018-01-01] MEDS ORDERED: IBUP1TAB7 PO (09:24)
--- NOTE | 2018-01-01 09:24 | RADRPT ---
EXAM DATE: 01/01/2018 8:11 AM EDT AGE/SEX: 32 years / Female INDICATIONS: Right lateral foot pain with no known injury. CLINICAL DATA: This is the patient's initial encounter. Patient reports that signs and symptoms have been present for 1 week and indicates a pain score of 8/10. MEDICAL/SURGICAL HISTORY: None. None. COMPARISON: No prior exams available for comparison. FINDINGS: Bony structures are intact and in normal alignment. Osseous density is normal. Soft tissues are unre markable. No radiopaque foreign bodies seen. CONCLUSION: Negative examination Electronically signed by: Angel Kessler MD 01/01/2018 9:22 AM EDT
== END 2018-01-01 09:59 | disposition home or self-care (01) ==
LOC: NEPD 07:36
DX: S96.911A Strain of unspecified muscle and tendon at ankle and foot level, right foot, initial encounter (principal); X58.XXXA Exposure to other specified factors, initial encounter; Z72.0 Tobacco use
CPT/HCPCS: 73620; 99283